=== PATIENT | female | born 1955 | race Caucasian/White ===

== ENCOUNTER → 2018-03-08 | Outpatient (CLI) | payer OTHER ==
--- NOTE | 2018-03-08 15:30 | Diagnostic Imaging Report ---
TECHNIQUE: Magnetic resonance imaging of the RIGHT SHOULDER was performed WITHOUT injected contrast. COMPARISON: None available. HISTORY: Right shoulder pain FINDINGS: MUSCLES AND TENDONS: Rotator Cuff: Tendons: Intact without high-grade tear. Muscles: No focal muscle atrophy. Biceps Tendon: The long head of the biceps tendon is intact in the bicipital groove. GLENOHUMERAL JOINT: Glenoid Labrum: No displaced tear. Articular Cartilage: No focal defect. AC JOINT AND ACROMION: No hypertrophic degenerative changes of the acromioclavicular joint. The acromion is unremarkable. BONE: No acute fracture. SOFT TISSUES: Subacromial subdeltoid bursal fluid. IMPRESSION: Intact rotator intact rotator cuff and labrum. Subacromial subdeltoid bursal fluid may reflect bursitis. Signed by: Dr. Luiz Smyth M.D. on 03/08/2018 3:27 PM
--- NOTE | 2018-03-08 16:08 | Diagnostic Imaging Report ---
TECHNIQUE: Magnetic resonance imaging of the RIGHT KNEE was performed WITHOUT injected contrast. HISTORY: Right knee pain COMPARISON: None available. FINDINGS: LIGAMENTS AND TENDONS: ACL: Intact PCL: Intact Collateral ligaments: Intact Iliotibial band: Unremarkable Popliteal tendon: Intact Extensor mechanism: Intact JOINT: Menisci: Medial: Free margin fraying without discrete tear. Lateral: Partial discoid without tear. Articular Cartilage: Medial Compartment: Low-grade cartilage loss Lateral Compartment: Low-grade cartilage loss Patellofemoral Compartment: Intermediate grade cartilage loss Joint Fluid: Small joint effusion BONE: No focal or infiltrative bone marrow replacing abnormality. No acute fracture. SOFT TISSUES: Jones's cyst 2.2 cm. 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 Patellofemoral compartment predominant partial-thickness cartilage loss. Signed by: Dr. Luiz Smyth M.D. on 03/08/2018 4:05 PM
== END ==
LOC: MRI 14:15
PROVIDERS: ATTEND Family Medicine
DX: M25.511 Pain in right shoulder (principal); M25.561 Pain in right knee